=== PATIENT | male | born 1995 | race Caucasian/White ===

== ENCOUNTER 2016-10-13 20:01 | Emergency (ER) | payer SELFPAY ==
[2016-10-13 20:20] VITALS: BP 144/91
== END 2016-10-13 21:57 | disposition home or self-care (01) ==
LOC: ED 20:01
DX: S61.031A Puncture wound without foreign body of right thumb without damage to nail, initial encounter (principal); Z79.899 Other long term (current) drug therapy; W54.0XXA Bitten by dog, initial encounter; Y93.89 Activity, other specified; Y92.89 Other specified places as the place of occurrence of the external cause; Y99.8 Other external cause status
CPT/HCPCS: 90715

== ENCOUNTER 2016-10-15 12:21 | Emergency (ER) | payer SELFPAY ==
[~2016-10-15] VITALS: Ht 167.6 cm; Wt 101.3 kg
[2016-10-15 14:09] VITALS: BP 129/66
== END 2016-10-15 14:29 | disposition home or self-care (01) ==
LOC: ED 12:21
DX: S61.031D Puncture wound without foreign body of right thumb without damage to nail, subsequent encounter (principal); S61.230D Puncture wound without foreign body of right index finger without damage to nail, subsequent encounter; Z79.2 Long term (current) use of antibiotics; W54.0XXD Bitten by dog, subsequent encounter